=== PATIENT | male | born 1995 | race Caucasian/White ===

== ENCOUNTER 2018-12-26 20:58 | Emergency (ER) | payer MEDICAID ==
[2018-12-26] MEDS: ACETAMINOPHEN 325 MG TAB PO (22:59)
[2018-12-26] MEDS: CLINDAMYCIN 300 MG INJ IM (22:59)
== END 2018-12-26 23:39 | disposition home or self-care (01) ==
LOC: FTE 23:39
DX: R68.84 Jaw pain (principal)
CPT/HCPCS: 96372; 99284-25

== ENCOUNTER 2019-02-19 20:28 | Emergency (ER) | payer MEDICAID ==
[2019-02-19] MEDS ORDERED: LIDOCAINE 1% (MDV) 20 ML INJ SC (22:30)
[2019-02-19] MEDS: KETOROLAC 30 MG INJ IM (22:33)
[2019-02-19] MEDS: DIPHTH/TET/ACEL PERTUSS (ADULT) 0.5 ML VIAL IM* (22:34)
== END 2019-02-19 23:04 | disposition home or self-care (01) ==
LOC: FTE 20:28
DX: S81.852A Open bite, left lower leg, initial encounter (principal); W54.0XXA Bitten by dog, initial encounter; Y92.9 Unspecified place or not applicable; Z23 Encounter for immunization
CPT/HCPCS: 90471; 90715; 96372; 99284-25